=== PATIENT | male | born 1965 | race Hispanic/Latino ===

== ENCOUNTER 2019-11-11 19:13 | Emergency (ER) | payer OTHER, SELFPAY ==
[2019-11-12 18:19] LABS: SARS-CoV-2 MS2 Positive; SARS-CoV-2 N Gene Negative; SARS-CoV-2 S Gene Negative; SARS-CoV-2 by NAA Not Detected (NotDetected); SARS-CoV-2 orf1ab Negative
== END 2019-11-11 20:06 | disposition home or self-care (01) ==
LOC: MADERS 19:13
DX: R68.83 Chills (without fever) (principal); Z20.828 Contact with and (suspected) exposure to other viral communicable diseases; I10 Essential (primary) hypertension; F41.9 Anxiety disorder, unspecified; F32.9 Major depressive disorder, single episode, unspecified; Z79.84 Long term (current) use of oral hypoglycemic drugs; Z79.899 Other long term (current) drug therapy
CPT/HCPCS: 87635; 99281; U0003

== ENCOUNTER 2020-02-28 17:51 | Emergency (ER) | payer BC, SELFPAY | END 2020-02-28 18:52 | disposition home or self-care (01) | LOC: MADERS 17:51 | DX: I10 Essential (primary) hypertension (principal); T46.5X5A Adverse effect of other antihypertensive drugs, initial encounter; F41.9 Anxiety disorder, unspecified; F32.9 Major depressive disorder, single episode, unspecified; Z79.84 Long term (current) use of oral hypoglycemic drugs; Z79.899 Other long term (current) drug therapy | CPT/HCPCS: 99283 ==